=== PATIENT | male | born 1985 | race African-American/Black ===

== ENCOUNTER 2016-08-08 18:03 | Emergency (ER) | payer SELFPAY ==
[~2016-08-08] VITALS: Ht 180.3 cm; Wt 72.7 kg
[2016-08-08 18:06] VITALS: BP 148/57; TEMP 97.9
[2016-08-08] MEDS ORDERED: ZOFRAN8 MG PO (18:34)
[2016-08-08] MEDS ORDERED: ULTRAM 50MG TAB50 MG PO (18:34)
[2016-08-08 18:58] VITALS: PULSE 88
== END 2016-08-08 19:00 | disposition home or self-care (01) ==
LOC: COL.ER 18:03
DX: R10.13 Epigastric pain (principal); R11.10 Vomiting, unspecified; R19.7 Diarrhea, unspecified